=== PATIENT | male | born 1945 | race Native Hawaiian/Other Pacific Islander ===

== ENCOUNTER 2018-01-19 08:44 | Outpatient (CLI) | payer OTHER | END 2018-01-19 23:16 | disposition home or self-care (01) | LOC: RAD 08:44 | DX: R13.12 Dysphagia, oropharyngeal phase (principal); I69.951 Hemiplegia and hemiparesis following unspecified cerebrovascular disease affecting right dominant side; E11.9 Type 2 diabetes mellitus without complications; I10 Essential (primary) hypertension ==

== ENCOUNTER 2018-08-01 13:02 | Outpatient (CLI) | payer OTHER | END 2018-08-01 22:50 | disposition home or self-care (01) | LOC: RAD 13:02 | DX: R13.12 Dysphagia, oropharyngeal phase (principal) ==

== ENCOUNTER 2023-01-15 14:43 | Emergency (ER) | payer OTHER ==
[~2023-01-15] VITALS: Ht 172.7 cm; Wt 60.3 kg
[2023-01-15 14:43] VITALS: BP 120/68; TEMP 98.2
[2023-01-15 15:29] LABS: PLATELET COUNT 177 K/uL (142-355)
[2023-01-15 15:36] LABS: POTASSIUM 4.5 mmol/L (3.6-5.2)
[2023-01-15] MEDS ORDERED: DONEPEZIL HYDRO10 MG EN (17:07)
[2023-01-15] MEDS ORDERED: STOOL SOFT50 MG/5 ML EN (17:09)
[2023-01-15] MEDS ORDERED: MOBIC7.5 M1 EN (17:10)
[2023-01-15] MEDS ORDERED: MONT10TA EN (17:11)
[2023-01-15] MEDS ORDERED: FINA5TAB2 EN (17:12)
[2023-01-15] MEDS ORDERED: VENLAFAXINE HYD75 M1 EN (17:13)
[2023-01-15] MEDS ORDERED: APIX1TAB EN (17:15)
[2023-01-15] MEDS ORDERED: TAMS0.4C EN (17:20)
[2023-01-15] MEDS ORDERED: FLONASE AL50 MCG/ACT NAS (17:22)
[2023-01-15] MEDS ORDERED: GEODON60 MG EN (17:23)
[2023-01-15] MEDS ORDERED: LEVE500T5 EN (17:39)
[2023-01-15] MEDS ORDERED: FURO20TA67 EN (17:42)
[2023-01-15] MEDS ORDERED: MEMA5TAB EN (17:43)
[2023-01-15] MEDS ORDERED: METO-837 EN (17:45)
[2023-01-15] MEDS ORDERED: OMEP40CA EN (17:47)
[2023-01-15] MEDS ORDERED: BUDE1AER3 INH (17:49)
[2023-01-15] MEDS ORDERED: VALP250S3 EN (17:50)
[2023-01-15] MEDS ORDERED: ALPR0.2566 EN (17:52)
[2023-01-15] MEDS ORDERED: AZEL137S NAS (17:56)
[2023-01-15] MEDS ORDERED: NYST100010 TOP (18:00)
== END 2023-01-15 15:59 | disposition still patient (30) ==
LOC: ED 14:43
PROVIDERS: Internal Medicine
DX: F03.90 Unspecified dementia, unspecified severity, without behavioral disturbance, psychotic disturbance, mood disturbance, and anxiety (principal)
CPT/HCPCS: 80053; 85027; 87635; 93005; 99283; U0003